=== PATIENT | female | born 1955 | race Caucasian/White ===

== ENCOUNTER 2017-04-21 11:50 | Emergency (ER) | payer OTHER ==
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
[2017-04-21 12:19] VITALS: RESP 18
[2017-04-21 13:39] VITALS: BP 110/84; PULSE 60; TEMP 98.4; O2SAT 97
== END 2017-04-21 13:39 | disposition home or self-care (01) ==
LOC: EDUNIT#
DX: S70.01XA Contusion of right hip, initial encounter (principal); S50.01XA Contusion of right elbow, initial encounter; S60.221A Contusion of right hand, initial encounter; V18.0XXA Pedal cycle driver injured in noncollision transport accident in nontraffic accident, initial encounter; Y92.410 Unspecified street and highway as the place of occurrence of the external cause; Y99.8 Other external cause status; Y93.55 Activity, bike riding